=== PATIENT | male | born 1970 | race Caucasian/White ===

== ENCOUNTER 2019-06-19 17:51 | Outpatient (REF) | payer MEDICAID, SELFPAY ==
[2019-06-19 22:20] LABS: Abs Immature Grans 0.02 k/cumm (0.0-0.09); Absolute Basophil Count 0.06 k/cumm (0.0-0.2); Absolute Eosinophil Count 0.32 k/cumm (0.0-0.7); Absolute Lymphocyte Count 3.33 k/cumm (1.2-3.4); Absolute Monocyte Count 0.69 k/cumm (0.11-0.7); Absolute Neutrophil Count 5.33 k/cumm (1.2-6.7); Basophils % 0.6; Eosinophils % 3.3; HCT 40.5 % (40.0-50.0); HGB 13.6 g/dL (13.5-17.5); Immature Grans % 0.2; Lymphocytes % 34.2; Mean Corp. HGB Concentration 33.6 g/dL (32.0-36.0); Mean Corpuscular Hemoglobin 31.9 pg (27.0-33.0); Mean Corpuscular Volume 94.8 fL (80-95); Mean Platelet Volume 10.8 fL (8.0-11.0); Monocytes % 7.1; Neutrophils % 54.6; Platelet Count 261 x1000/uL (130-400); RBC 4.27 m/cumm (4.50-6.00); RBC Distribution Width 12.7 % (11.8-14.1); White Blood Cell Count 9.75 k/cumm (4.4-10.8)
[2019-06-19 22:30] LABS: Iron 57 ug/dL (65-175); Total Iron Binding Capacity 307 ug/dL (250-450); Transferrin Sat 19 % (20-55)
[2019-06-19 23:00] LABS: ALT 24 U/L (16-63); AST 12 U/L (15-37); Alkaline Phosphatase 71 U/L (46-116); Anion Gap 10.8 mmol/L (3-11); BUN 17 mg/dL (7-18); Bilirubin, Total 0.2 mg/dL (0.2-1.0); CO2 26.2 mmol/L (21.0-32.0); CREATININE 0.88 mg/dL (0.70-1.30); Calcium 9.1 mg/dL (8.5-10.1); Calculated LDL 115 mg/dL; Chloride 104 mmol/L (98-107); Cholesterol 187 mg/dL (<200); Folate 10.9 ng/mL (8.6-20.0); Glucose 88 mg/dL (74-106); HDL Cholesterol 47 mg/dL (40-60); Potassium 4.2 mmol/L (3.5-5.1); Sodium 141 mmol/L (136-145); TSH (W/Ref FT4) 2.59 uIU/mL (0.36-3.74); Triglyceride 126 mg/dL (<150); Vitamin B12 520 pg/mL (193-986)
[2019-06-19 23:02] LABS: INR 0.9 (0.9-1.1); Prothrombin Time 9.1 sec (9.3-11.0)
[2019-06-19 23:10] LABS: Lipase 217 U/L (73-393)
== END 2019-06-19 18:11 ==
LOC: NCHCN 17:51
PROVIDERS: PCP Nurse Practitioner Community Health; Visit Provider Nurse Practitioner Community Health
DX: K92.2 Gastrointestinal hemorrhage, unspecified (principal)
CPT/HCPCS: 80053; 80061; 83690; 82607; 82746; 83540; 83550; 84443; 85025; 85610

== ENCOUNTER 2019-07-18 15:44 | Outpatient (REF) | payer MEDICAID, SELFPAY ==
[2019-07-18 21:51] LABS: Absolute Basophil Count 0.03 k/cumm (0.0-0.2); Absolute Eosinophil Count 0.29 k/cumm (0.0-0.7); Absolute Lymphocyte Count 2.72 k/cumm (1.2-3.4); Absolute Monocyte Count 0.55 k/cumm (0.11-0.7); Absolute Neutrophil Count 4.45 k/cumm (1.2-6.7); Basophils % 0.4; Eosinophils % 3.6; HCT 40.3 % (40.0-50.0); HGB 13.5 g/dL (13.5-17.5); Lymphocytes % 33.8; Mean Corp. HGB Concentration 33.5 g/dL (32.0-36.0); Mean Corpuscular Hemoglobin 32.1 pg (27.0-33.0); Mean Corpuscular Volume 95.7 fL (80-95); Mean Platelet Volume 10.8 fL (8.0-11.0); Monocytes % 6.8; Neutrophils % 55.4; Platelet Count 281 x1000/uL (130-400); RBC 4.21 m/cumm (4.50-6.00); RBC Distribution Width 12.6 % (11.8-14.1); White Blood Cell Count 8.04 k/cumm (4.4-10.8)
[2019-07-18 22:03] LABS: ALT 21 U/L (16-63); AST 10 U/L (15-37); Albumin 3.9 g/dL (3.4-5.0); Alkaline Phosphatase 85 U/L (46-116); Anion Gap 6.5 mmol/L (3-11); BUN 7 mg/dL (7-18); Bilirubin, Total 0.2 mg/dL (0.2-1.0); CO2 30.5 mmol/L (21.0-32.0); CREATININE 0.85 mg/dL (0.70-1.30); Calcium 9.5 mg/dL (8.5-10.1); Chloride 107 mmol/L (98-107); Glucose 79 mg/dL (74-106); Sodium 144 mmol/L (136-145); Total Protein 6.9 g/dL (6.4-8.2)
[2019-07-22 11:21] LABS: CEA 0.6 ng/mL (See Note)
== END 2019-07-18 16:04 ==
LOC: NCHCN 15:44
PROVIDERS: PCP Nurse Practitioner Community Health; Visit Provider Nurse Practitioner Community Health
DX: K92.2 Gastrointestinal hemorrhage, unspecified (principal); F10.20 Alcohol dependence, uncomplicated
CPT/HCPCS: 80053; 82378; 85025

== ENCOUNTER 2023-09-01 02:31 | Outpatient (CLI) | payer MEDICARE, MEDICAID, SELFPAY ==
[2023-09-01 11:46] LABS: Abs Immature Grans 0.03 10^3/uL (0.0-0.06); Absolute Basophil Count 0.05 10^3/uL (0.0-0.2); Absolute Eosinophil Count 0.15 10^3/uL (0.0-0.7); Absolute Lymphocyte Count 1.15 10^3/uL (1.2-3.4); Absolute Monocyte Count 0.39 10^3/uL (0.1-0.8); Absolute Neutrophil Count 2.78 10^3/uL (1.2-6.7); Basophils % 1.1; Eosinophils % 3.3; HCT 39.5 % (40.0-50.0); Immature Grans % 0.7; Lymphocytes % 25.3; MCH 32.1 pg (27.0-33.0); MCHC 32.9 % (32.0-36.0); MCV 98 fL (80-95); MPV 9.4 fL (8.0-11.0); Monocytes % 8.6; Platelet Count 167 10^3/uL (130-400); RBC 4.05 10^6/uL (4.36-5.78); RDW 12.5 % (11.8-14.1); RDW-SD 45.4 fL; WBC 4.55 10^3/uL (4.4-10.8)
[2023-09-01 12:03] LABS: ALT 21 U/L (16-63); AST 11 U/L (15-37); Alkaline Phosphatase 92 U/L (46-116); Anion Gap 7.5 mmol/L (3-11); BUN 19 mg/dL (7-18); Bilirubin, Total 0.2 mg/dL (0.2-1.0); CO2 30.5 mmol/L (21.0-32.0); CREATININE 0.9 mg/dL (0.70-1.30); Calcium 9.5 mg/dL (8.5-10.1); Chloride 103 mmol/L (98-107); Estimated GFR 100.86 (mL/min/1.73m2); Glucose 92 mg/dL (74-106); Potassium 4.5 mmol/L (3.5-5.1); Sodium 141 mmol/L (136-145); Total Protein 7.6 g/dL (6.4-8.2)
== END 2023-09-01 02:32 | disposition home or self-care (01) ==
PROVIDERS: PCP Nurse Practitioner Community Health; Visit Provider Internal Medicine Hematology & Oncology
DX: C18.9 Malignant neoplasm of colon, unspecified (principal); C78.00 Secondary malignant neoplasm of unspecified lung
CPT/HCPCS: 36415; 80053; 85025

== ENCOUNTER 2023-09-08 01:25 | Outpatient (CLI) | payer MEDICARE, SELFPAY ==
[2023-09-08 09:53] LABS: Abs Immature Grans 0.02 10^3/uL (0.0-0.06); Absolute Basophil Count 0.04 10^3/uL (0.0-0.2); Absolute Eosinophil Count 0.08 10^3/uL (0.0-0.7); Absolute Lymphocyte Count 1.16 10^3/uL (1.2-3.4); Absolute Monocyte Count 0.38 10^3/uL (0.1-0.8); Absolute Neutrophil Count 3.78 10^3/uL (1.2-6.7); Basophils % 0.7; Eosinophils % 1.5; HCT 42.1 % (40.0-50.0); HGB 13.8 g/dL (13.5-17.5); Immature Grans % 0.4; Lymphocytes % 21.2; MCH 31.9 pg (27.0-33.0); MCHC 32.8 % (32.0-36.0); MCV 98 fL (80-95); MPV 9.2 fL (8.0-11.0); Neutrophils % 69.2; Platelet Count 178 10^3/uL (130-400); RBC 4.32 10^6/uL (4.36-5.78); RDW 12.6 % (11.8-14.1); RDW-SD 45.3 fL; WBC 5.46 10^3/uL (4.4-10.8)
[2023-09-08 10:12] LABS: ALT 25 U/L (16-63); AST 13 U/L (15-37); Albumin 4.3 g/dL (3.4-5.0); Alkaline Phosphatase 96 U/L (46-116); Anion Gap 7.9 mmol/L (3-11); BUN 16 mg/dL (7-18); Bilirubin, Total 0.6 mg/dL (0.2-1.0); CO2 31.1 mmol/L (21.0-32.0); CREATININE 1.1 mg/dL (0.70-1.30); Calcium 9.6 mg/dL (8.5-10.1); Chloride 103 mmol/L (98-107); Estimated GFR 79.28 (mL/min/1.73m2); Glucose 86 mg/dL (74-106); Sodium 142 mmol/L (136-145)
== END 2023-09-08 01:26 | disposition home or self-care (01) ==
LOC: LBO 01:25
PROVIDERS: PCP Nurse Practitioner Community Health; Visit Provider Internal Medicine Hematology & Oncology
DX: C18.9 Malignant neoplasm of colon, unspecified (principal)
CPT/HCPCS: 36415; 80053; 85025

== ENCOUNTER 2023-09-15 02:33 | Outpatient (CLI) | payer MEDICARE, SELFPAY ==
[2023-09-15 10:30] LABS: Abs Immature Grans 0.01 10^3/uL (0.0-0.06); Absolute Basophil Count 0.02 10^3/uL (0.0-0.2); Absolute Eosinophil Count 0.11 10^3/uL (0.0-0.7); Absolute Lymphocyte Count 0.84 10^3/uL (1.2-3.4); Absolute Monocyte Count 0.68 10^3/uL (0.1-0.8); Absolute Neutrophil Count 4.99 10^3/uL (1.2-6.7); Basophils % 0.3; Eosinophils % 1.7; HCT 38.2 % (40.0-50.0); HGB 12.7 g/dL (13.5-17.5); Immature Grans % 0.2; Lymphocytes % 12.6; MCH 32.2 pg (27.0-33.0); MCHC 33.2 % (32.0-36.0); MCV 97 fL (80-95); MPV 9.4 fL (8.0-11.0); Monocytes % 10.2; Platelet Count 149 10^3/uL (130-400); RBC 3.94 10^6/uL (4.36-5.78); RDW 12.7 % (11.8-14.1); RDW-SD 44.9 fL; WBC 6.65 10^3/uL (4.4-10.8)
[2023-09-15 10:45] LABS: ALT 27 U/L (16-63); AST 15 U/L (15-37); Albumin 3.7 g/dL (3.4-5.0); Alkaline Phosphatase 118 U/L (46-116); BUN 9 mg/dL (7-18); Bilirubin, Total 0.3 mg/dL (0.2-1.0); CREATININE 0.9 mg/dL (0.70-1.30); Calcium 9.3 mg/dL (8.5-10.1); Chloride 104 mmol/L (98-107); Estimated GFR 100.86 (mL/min/1.73m2); Glucose 90 mg/dL (74-106); Sodium 141 mmol/L (136-145); Total Protein 7.4 g/dL (6.4-8.2)
== END 2023-09-15 02:34 | disposition home or self-care (01) ==
LOC: LBO 02:34
PROVIDERS: PCP Nurse Practitioner Community Health; Visit Provider Internal Medicine Hematology & Oncology
DX: C18.9 Malignant neoplasm of colon, unspecified (principal); C78.00 Secondary malignant neoplasm of unspecified lung
CPT/HCPCS: 36415; 80053; 85025

== ENCOUNTER 2023-09-22 13:51 | Outpatient (CLI) | payer MEDICARE, SELFPAY ==
[2023-09-22 10:58] LABS: Abs Immature Grans 0.03 10^3/uL (0.0-0.06); Absolute Basophil Count 0.02 10^3/uL (0.0-0.2); Absolute Eosinophil Count 0.07 10^3/uL (0.0-0.7); Absolute Lymphocyte Count 1.02 10^3/uL (1.2-3.4); Absolute Monocyte Count 0.45 10^3/uL (0.1-0.8); Absolute Neutrophil Count 3.82 10^3/uL (1.2-6.7); Basophils % 0.4; Eosinophils % 1.3; HCT 40.1 % (40.0-50.0); HGB 13.4 g/dL (13.5-17.5); Immature Grans % 0.6; Lymphocytes % 18.9; MCH 32.9 pg (27.0-33.0); MCHC 33.4 % (32.0-36.0); MCV 99 fL (80-95); Monocytes % 8.3; Neutrophils % 70.5; Platelet Count 161 10^3/uL (130-400); RBC 4.07 10^6/uL (4.36-5.78); RDW 13.2 % (11.8-14.1); RDW-SD 45.9 fL; WBC 5.41 10^3/uL (4.4-10.8)
[2023-09-22 11:13] LABS: ALT 24 U/L (16-63); AST 16 U/L (15-37); Albumin 3.8 g/dL (3.4-5.0); Alkaline Phosphatase 104 U/L (46-116); Anion Gap 12.6 mmol/L (3-11); BUN 13 mg/dL (7-18); Bilirubin, Total 0.4 mg/dL (0.2-1.0); CO2 26.4 mmol/L (21.0-32.0); Calcium 9.2 mg/dL (8.5-10.1); Chloride 103 mmol/L (98-107); Estimated GFR 88.88 (mL/min/1.73m2); Glucose 134 mg/dL (74-106); Potassium 3.6 mmol/L (3.5-5.1); Sodium 142 mmol/L (136-145); Total Protein 7.3 g/dL (6.4-8.2)
== END 2023-09-22 13:52 | disposition home or self-care (01) ==
LOC: LBO 13:51
PROVIDERS: PCP Nurse Practitioner Community Health; Visit Provider Internal Medicine Hematology & Oncology
DX: C18.9 Malignant neoplasm of colon, unspecified (principal)
CPT/HCPCS: 36415; 80053; 85025

== ENCOUNTER 2023-09-29 01:46 | Outpatient (CLI) | payer MEDICARE, SELFPAY ==
[2023-09-29 10:03] LABS: Abs Immature Grans 0.01 10^3/uL (0.0-0.06); Absolute Basophil Count 0.03 10^3/uL (0.0-0.2); Absolute Eosinophil Count 0.09 10^3/uL (0.0-0.7); Absolute Lymphocyte Count 0.83 10^3/uL (1.2-3.4); Absolute Monocyte Count 0.48 10^3/uL (0.1-0.8); Absolute Neutrophil Count 3.05 10^3/uL (1.2-6.7); Basophils % 0.7; HCT 39.3 % (40.0-50.0); HGB 13.1 g/dL (13.5-17.5); Immature Grans % 0.2; Lymphocytes % 18.5; MCH 32.8 pg (27.0-33.0); MCHC 33.3 % (32.0-36.0); MCV 98 fL (80-95); MPV 9.3 fL (8.0-11.0); Monocytes % 10.7; Neutrophils % 67.9; Platelet Count 153 10^3/uL (130-400); RDW-SD 48.1 fL; WBC 4.49 10^3/uL (4.4-10.8)
[2023-09-29 10:18] LABS: ALT 26 U/L (16-63); AST 14 U/L (15-37); Albumin 3.9 g/dL (3.4-5.0); Alkaline Phosphatase 96 U/L (46-116); Anion Gap 10.1 mmol/L (3-11); BUN 17 mg/dL (7-18); Bilirubin, Total 0.6 mg/dL (0.2-1.0); CO2 27.9 mmol/L (21.0-32.0); CREATININE 0.9 mg/dL (0.70-1.30); Calcium 9.2 mg/dL (8.5-10.1); Chloride 101 mmol/L (98-107); Estimated GFR 100.86 (mL/min/1.73m2); Glucose 79 mg/dL (74-106); Sodium 139 mmol/L (136-145); Total Protein 7.3 g/dL (6.4-8.2)
== END 2023-09-29 01:47 | disposition home or self-care (01) ==
LOC: LBO 01:59
PROVIDERS: PCP Nurse Practitioner Community Health; Visit Provider Internal Medicine Hematology & Oncology
DX: C78.00 Secondary malignant neoplasm of unspecified lung (principal)
CPT/HCPCS: 36415; 80053; 85025

== ENCOUNTER 2023-10-06 15:09 | Outpatient (CLI) | payer MEDICARE, SELFPAY ==
[2023-10-06 10:29] LABS: Abs Immature Grans 0.02 10^3/uL (0.0-0.06); Absolute Basophil Count 0.02 10^3/uL (0.0-0.2); Absolute Eosinophil Count 0.07 10^3/uL (0.0-0.7); Absolute Monocyte Count 0.35 10^3/uL (0.1-0.8); Absolute Neutrophil Count 2.54 10^3/uL (1.2-6.7); Basophils % 0.5; Eosinophils % 1.9; HCT 36.5 % (40.0-50.0); HGB 12.5 g/dL (13.5-17.5); Immature Grans % 0.5; Lymphocytes % 18.9; MCH 33.5 pg (27.0-33.0); MCHC 34.2 % (32.0-36.0); MCV 98 fL (80-95); MPV 8.9 fL (8.0-11.0); Monocytes % 9.5; Neutrophils % 68.7; Platelet Count 135 10^3/uL (130-400); RBC 3.73 10^6/uL (4.36-5.78); RDW 15.2 % (11.8-14.1); RDW-SD 52.5 fL
[2023-10-06 10:44] LABS: ALT 27 U/L (16-63); AST 21 U/L (15-37); Albumin 3.9 g/dL (3.4-5.0); Alkaline Phosphatase 90 U/L (46-116); Anion Gap 8.7 mmol/L (3-11); BUN 11 mg/dL (7-18); Bilirubin, Total 0.5 mg/dL (0.2-1.0); CO2 29.3 mmol/L (21.0-32.0); CREATININE 0.9 mg/dL (0.70-1.30); Calcium 9.1 mg/dL (8.5-10.1); Chloride 101 mmol/L (98-107); Estimated GFR 100.86 (mL/min/1.73m2); Glucose 124 mg/dL (74-106); Potassium 3.6 mmol/L (3.5-5.1); Sodium 139 mmol/L (136-145); Total Protein 7.2 g/dL (6.4-8.2)
== END 2023-10-06 15:10 | disposition home or self-care (01) ==
LOC: LBO 15:10
PROVIDERS: PCP Nurse Practitioner Community Health; Visit Provider Internal Medicine Hematology & Oncology
DX: C18.9 Malignant neoplasm of colon, unspecified (principal)
CPT/HCPCS: 36415; 80053; 85025

== ENCOUNTER 2024-02-16 01:47 | Outpatient (CLI) | payer MEDICARE, SELFPAY ==
[2024-02-16 09:23] LABS: Abs Immature Grans 0.01 10^3/uL (0.0-0.06); Absolute Basophil Count 0.04 10^3/uL (0.0-0.2); Absolute Eosinophil Count 0.16 10^3/uL (0.0-0.7); Absolute Lymphocyte Count 0.91 10^3/uL (1.2-3.4); Absolute Neutrophil Count 2.94 10^3/uL (1.2-6.7); Basophils % 0.9 %; Eosinophils % 3.5 %; HCT 40.9 % (40.0-50.0); HGB 14.1 g/dL (13.5-17.5); Immature Grans % 0.2 %; MCH 33.6 pg (27.0-33.0); MCHC 34.5 % (32.0-36.0); MCV 97 fL (80-95); MPV 9.3 fL (8.0-11.0); Neutrophils % 64.4 %; Platelet Count 207 10^3/uL (130-400); RDW 12.6 % (11.8-14.1); RDW-SD 44.7 fL; WBC 4.56 10^3/uL (4.4-10.8)
[2024-02-16 09:38] LABS: ALT 26 U/L (16-63); AST 14 U/L (15-37); Albumin 4.3 g/dL (3.4-5.0); Alkaline Phosphatase 84 U/L (46-116); Anion Gap 5.1 mmol/L (3-11); BUN 13 mg/dL (7-18); Bilirubin, Total 0.39 mg/dL (0.2-1.0); CO2 32.9 mmol/L (21.0-32.0); CREATININE 0.9 mg/dL (0.70-1.30); Calcium 9.8 mg/dL (8.5-10.1); Chloride 103 mmol/L (98-107); Estimated GFR 100.86 (mL/min/1.73m2); Glucose 66 mg/dL (74-106); Potassium 4.2 mmol/L (3.5-5.1); Sodium 141 mmol/L (136-145); Total Protein 7.5 g/dL (6.4-8.2)
[2024-02-16 09:39] LABS: Bilirubin Negative (Negative); Blood Negative (Negative); Clarity Clear (Clear); Glucose Negative (Negative); Ketones Negative (Negative); Leukocyte Esterase Negative (Negative); Nitrite Negative (Negative); Specific Gravity <= 1.005 (1.005-1.025); Urobilinogen 0.2 mg/dL (Up to 0.2); pH 5.5 (5-8)
[2024-02-16 21:56] LABS: CEA 4.4 ng/mL (See Note)
== END 2024-02-16 01:48 | disposition home or self-care (01) ==
LOC: LBO 01:48
PROVIDERS: PCP Nurse Practitioner Community Health; Visit Provider Internal Medicine Hematology & Oncology
DX: C79.9 Secondary malignant neoplasm of unspecified site (principal); C20 Malignant neoplasm of rectum
CPT/HCPCS: 36415; 80053; 81003; 82378; 85025

== ENCOUNTER 2024-03-01 01:05 | Outpatient (RCR) | payer MEDICARE, MEDICAID, SELFPAY ==
[2024-03-01] MEDS: Normal Saline Flush 10 ML SYR IVP (12:22)
[2024-03-01 12:37] LABS: Bilirubin Negative (Negative); Blood Negative (Negative); Clarity Clear (Clear); Glucose Negative (Negative); Ketones Negative (Negative); Leukocyte Esterase Negative (Negative); Nitrite Negative (Negative); Urobilinogen 0.2 mg/dL (Up to 0.2)
[2024-03-01 12:42] LABS: Absolute Basophil Count 0.04 10^3/uL (0.0-0.2); Absolute Eosinophil Count 0.06 10^3/uL (0.0-0.7); Absolute Monocyte Count 0.43 10^3/uL (0.1-0.8); Eosinophils % 1.5 %; HGB 12.9 g/dL (13.5-17.5); Lymphocytes % 22.9 %; MCH 32.9 pg (27.0-33.0); MCHC 33.9 % (32.0-36.0); MCV 97 fL (80-95); MPV 9.2 fL (8.0-11.0); Monocytes % 10.9 %; Neutrophils % 63.7 %; Platelet Count 204 10^3/uL (130-400); RBC 3.92 10^6/uL (4.36-5.78); RDW 13.2 % (11.8-14.1); RDW-SD 46.2 fL; WBC 3.93 10^3/uL (4.4-10.8)
[2024-03-01 12:55] LABS: ALT 18 U/L (16-63); AST 10 U/L (15-37); Albumin 4.1 g/dL (3.4-5.0); Alkaline Phosphatase 78 U/L (46-116); Anion Gap 5.4 mmol/L (3-11); BUN 12 mg/dL (7-18); Bilirubin, Total 0.27 mg/dL (0.2-1.0); CO2 31.6 mmol/L (21.0-32.0); Calcium 9.5 mg/dL (8.5-10.1); Chloride 100 mmol/L (98-107); Estimated GFR 88.88 (mL/min/1.73m2); Glucose 105 mg/dL (74-106); Potassium 4.4 mmol/L (3.5-5.1); Sodium 137 mmol/L (136-145); Total Protein 7.3 g/dL (6.4-8.2)
[2024-03-01 22:35] LABS: CEA 3.7 ng/mL (See Note)
== END 2024-03-02 23:59 | disposition home or self-care (01) ==
LOC: INF 01:05
PROVIDERS: PCP Nurse Practitioner Community Health; Visit Provider Internal Medicine Hematology & Oncology
DX: C20 Malignant neoplasm of rectum (principal); C79.9 Secondary malignant neoplasm of unspecified site; Z45.2 Encounter for adjustment and management of vascular access device
CPT/HCPCS: 36591; 80053; 96523; 81003; 82378; 85025

== ENCOUNTER 2024-03-29 01:35 | Outpatient (RCR) | payer MEDICARE, MEDICAID, SELFPAY ==
[2024-03-03] MEDS: Normal Saline Flush 10 ML SYR IVP (14:12)
[2024-03-15] MEDS: Normal Saline Flush 10 ML SYR IVP (09:00)
[2024-03-15 09:11] LABS: Abs Immature Grans 0.01 10^3/uL (0.0-0.06); Absolute Basophil Count 0.03 10^3/uL (0.0-0.2); Absolute Eosinophil Count 0.05 10^3/uL (0.0-0.7); Absolute Lymphocyte Count 0.84 10^3/uL (1.2-3.4); Absolute Monocyte Count 0.25 10^3/uL (0.1-0.8); Absolute Neutrophil Count 1.99 10^3/uL (1.2-6.7); Basophils % 0.9 %; Eosinophils % 1.6 %; HCT 36.8 % (40.0-50.0); HGB 12.2 g/dL (13.5-17.5); Immature Grans % 0.3 %; Lymphocytes % 26.5 %; MCH 33.2 pg (27.0-33.0); MCHC 33.2 % (32.0-36.0); MCV 100 fL (80-95); MPV 9.3 fL (8.0-11.0); Monocytes % 7.9 %; Neutrophils % 62.8 %; Platelet Count 132 10^3/uL (130-400); RBC 3.68 10^6/uL (4.36-5.78); RDW 13.6 % (11.8-14.1); RDW-SD 49.3 fL; WBC 3.17 10^3/uL (4.4-10.8)
[2024-03-15 09:18] LABS: Bilirubin Negative (Negative); Blood Negative (Negative); Clarity Clear (Clear); Glucose Negative (Negative); Ketones Negative (Negative); Leukocyte Esterase Negative (Negative); Nitrite Negative (Negative); Urobilinogen 0.2 mg/dL (Up to 0.2); pH 6.5 (5-8)
[2024-03-15 09:31] LABS: ALT 21 U/L (16-63); AST 17 U/L (15-37); Albumin 3.7 g/dL (3.4-5.0); Alkaline Phosphatase 68 U/L (46-116); Anion Gap 4.3 mmol/L (3-11); BUN 23 mg/dL (7-18); Bilirubin, Total 0.19 mg/dL (0.2-1.0); CO2 30.7 mmol/L (21.0-32.0); CREATININE 1.1 mg/dL (0.70-1.30); Calcium 9.2 mg/dL (8.5-10.1); Chloride 103 mmol/L (98-107); Estimated GFR 79.28 (mL/min/1.73m2); Glucose 120 mg/dL (74-106); Potassium 4.2 mmol/L (3.5-5.1); Sodium 138 mmol/L (136-145); Total Protein 6.6 g/dL (6.4-8.2)
[2024-03-15 18:12] LABS: CEA 4.5 ng/mL (See Note)
[2024-03-17] MEDS: Normal Saline Flush 10 ML SYR IVP (11:47)
== END 2024-04-01 23:59 | disposition home or self-care (01) ==
LOC: INF 01:35
PROVIDERS: PCP Nurse Practitioner Community Health; Visit Provider Internal Medicine Hematology & Oncology
DX: C20 Malignant neoplasm of rectum (principal); C79.9 Secondary malignant neoplasm of unspecified site
CPT/HCPCS: 36591; 80053; 96523; 81003; 82378; 85025

== ENCOUNTER 2024-04-12 01:29 | Outpatient (RCR) | payer MEDICARE, SELFPAY ==
[2024-04-12 12:56] LABS: Abs Immature Grans 0.03 10^3/uL (0.0-0.06); Absolute Basophil Count 0.04 10^3/uL (0.0-0.2); Absolute Eosinophil Count 0.16 10^3/uL (0.0-0.7); Absolute Monocyte Count 0.73 10^3/uL (0.1-0.8); Absolute Neutrophil Count 3.52 10^3/uL (1.2-6.7); Basophils % 0.7 %; Eosinophils % 2.9 %; HCT 35.6 % (40.0-50.0); HGB 11.4 g/dL (13.5-17.5); Immature Grans % 0.5 %; Lymphocytes % 19.7 %; MCH 33.5 pg (27.0-33.0); MCV 105 fL (80-95); MPV 9.2 fL (8.0-11.0); Monocytes % 13.1 %; Neutrophils % 63.1 %; Platelet Count 201 10^3/uL (130-400); RDW 16.2 % (11.8-14.1); RDW-SD 62.7 fL; WBC 5.58 10^3/uL (4.4-10.8)
[2024-04-12 13:00] LABS: Bilirubin Negative (Negative); Blood Negative (Negative); Clarity Clear (Clear); Glucose Negative (Negative); Ketones Negative (Negative); Leukocyte Esterase Negative (Negative); Nitrite Negative (Negative); Urobilinogen 0.2 mg/dL (Up to 0.2)
[2024-04-12 13:14] LABS: ALT 63 U/L (16-63); AST 26 U/L (15-37); Albumin 3.6 g/dL (3.4-5.0); Alkaline Phosphatase 158 U/L (46-116); Anion Gap 7.6 mmol/L (3-11); BUN 13 mg/dL (7-18); CO2 29.4 mmol/L (21.0-32.0); CREATININE 0.7 mg/dL (0.70-1.30); Calcium 9.3 mg/dL (8.5-10.1); Chloride 106 mmol/L (98-107); Estimated GFR 108.82 (mL/min/1.73m2); Glucose 80 mg/dL (74-106); Potassium 4.2 mmol/L (3.5-5.1); Sodium 143 mmol/L (136-145); Total Protein 7.2 g/dL (6.4-8.2)
[2024-04-15 12:40] LABS: CEA 2.1 ng/mL (See Note)
== END 2024-05-02 23:59 | disposition home or self-care (01) ==
LOC: INF 01:29
PROVIDERS: PCP Nurse Practitioner Community Health; Visit Provider Internal Medicine Hematology & Oncology
DX: C20 Malignant neoplasm of rectum; C78.00 Secondary malignant neoplasm of unspecified lung
CPT/HCPCS: 80053; 81003; 82378; 85025

== ENCOUNTER 2024-06-18 02:41 | Outpatient (RCR) | payer MEDICARE, SELFPAY ==
[2024-06-18 10:06] LABS: Abs Immature Grans 0.02 10^3/uL (0.0-0.06); Absolute Basophil Count 0.03 10^3/uL (0.0-0.2); Absolute Eosinophil Count 0.11 10^3/uL (0.0-0.7); Absolute Lymphocyte Count 1.38 10^3/uL (1.2-3.4); Absolute Monocyte Count 0.44 10^3/uL (0.1-0.8); Absolute Neutrophil Count 3.95 10^3/uL (1.2-6.7); Basophils % 0.5 %; Eosinophils % 1.9 %; HCT 43.6 % (40.0-50.0); HGB 14.5 g/dL (13.5-17.5); Immature Grans % 0.3 %; Lymphocytes % 23.3 %; MCH 33.1 pg (27.0-33.0); MCHC 33.3 % (32.0-36.0); MCV 100 fL (80-95); MPV 9.4 fL (8.0-11.0); Monocytes % 7.4 %; Neutrophils % 66.6 %; Platelet Count 224 10^3/uL (130-400); RBC 4.38 10^6/uL (4.36-5.78); RDW 11.8 % (11.8-14.1); RDW-SD 42.5 fL; WBC 5.93 10^3/uL (4.4-10.8)
[2024-06-18 10:08] LABS: Bilirubin Negative (Negative); Blood Negative (Negative); Clarity Clear (Clear); Glucose Negative (Negative); Ketones Negative (Negative); Leukocyte Esterase Negative (Negative); Nitrite Negative (Negative); Urobilinogen 0.2 mg/dL (Up to 0.2); pH 6.5 (5-8)
[2024-06-18 10:22] LABS: ALT 31 U/L (16-63); AST 14 U/L (15-37); Albumin 3.9 g/dL (3.4-5.0); Alkaline Phosphatase 92 U/L (46-116); Anion Gap 7.6 mmol/L (3-11); BUN 12 mg/dL (7-18); Bilirubin, Total 0.19 mg/dL (0.2-1.0); CO2 29.4 mmol/L (21.0-32.0); CREATININE 0.8 mg/dL (0.70-1.30); Calcium 9.3 mg/dL (8.5-10.1); Chloride 105 mmol/L (98-107); Estimated GFR 104.51 (mL/min/1.73m2); Glucose 117 mg/dL (74-106); Sodium 142 mmol/L (136-145); Total Protein 7.3 g/dL (6.4-8.2)
[2024-06-18 18:32] LABS: CEA 1.7 ng/mL (See Note)
== END 2024-07-02 23:59 | disposition home or self-care (01) ==
LOC: INF 02:41
PROVIDERS: PCP Nurse Practitioner Community Health; Visit Provider Internal Medicine Hematology & Oncology
DX: C20 Malignant neoplasm of rectum; C79.9 Secondary malignant neoplasm of unspecified site; Z45.2 Encounter for adjustment and management of vascular access device
CPT/HCPCS: 36415; 80053; 81003; 82378; 85025

== ENCOUNTER 2024-11-14 09:13 | Outpatient (CLI) | payer MEDICARE, SELFPAY ==
[2024-11-14 19:17] LABS: CEA 1.7 ng/mL (See Note)
== END 2024-11-14 09:14 | disposition home or self-care (01) ==
LOC: LBO 09:13
PROVIDERS: PCP Nurse Practitioner Community Health; Visit Provider Internal Medicine Hematology & Oncology
DX: C18.9 Malignant neoplasm of colon, unspecified (principal)
CPT/HCPCS: 36415; 82378

== ENCOUNTER 2025-01-16 01:11 | Outpatient (RCR) | payer MEDICARE, MEDICAID, SELFPAY ==
[2025-01-16 09:44] LABS: Abs Immature Grans 0.04 10^3/uL (0.0-0.06); HCT 35.0 % (40.0-50.0); HGB 11.4 g/dL (13.5-17.5); Immature Grans % 0.7 %; MCH 32.8 pg (27.0-33.0); MCHC 32.6 % (32.0-36.0); MCV 101 fL (80-95); MPV 10.0 fL (8.0-11.0); Platelet Count 153 10^3/uL (130-400); RBC 3.48 10^6/uL (4.36-5.78); RDW 14.5 % (11.8-14.1); RDW-SD 53.6 fL; WBC 5.44 10^3/uL (4.4-10.8)
[2025-01-16] MEDS: Normal Saline Flush 10 ML SYR IVP (09:50)
[2025-01-16 10:08] LABS: ALT 42 U/L (16-63); AST 15 U/L (15-37); Albumin 3.6 g/dL (3.4-5.0); Alkaline Phosphatase 106 U/L (46-116); Anion Gap 5.0 mmol/L (3-11); BUN 15 mg/dL (7-18); Bilirubin, Total 0.3 mg/dL (0.2-1.0); CO2 32.0 mmol/L (21.0-32.0); Calcium 8.8 mg/dL (8.5-10.1); Chloride 102 mmol/L (98-107); Estimated GFR 103.87 (mL/min/1.73m2); Glucose 119 mg/dL (74-106); Potassium 4.0 mmol/L (3.5-5.1); Sodium 139 mmol/L (136-145); TSH 6.39 uIU/mL (0.36-3.74); Total Protein 6.7 g/dL (6.4-8.2)
[2025-01-16 19:14] LABS: CEA 2.6 ng/mL (See Note)
== END 2025-01-30 23:59 | disposition home or self-care (01) ==
LOC: INF 01:11
PROVIDERS: PCP Nurse Practitioner Community Health; Visit Provider Internal Medicine Hematology & Oncology
DX: C20 Malignant neoplasm of rectum (principal); C79.9 Secondary malignant neoplasm of unspecified site; R53.83 Other fatigue; C18.9 Malignant neoplasm of colon, unspecified; C78.00 Secondary malignant neoplasm of unspecified lung; R79.89 Other specified abnormal findings of blood chemistry; Z45.2 Encounter for adjustment and management of vascular access device
CPT/HCPCS: 36591; 80053; 82378; 84439; 84443; 85025

== ENCOUNTER 2025-03-23 00:33 | Outpatient (RCR) | payer MEDICARE, MEDICAID, SELFPAY ==
[2025-03-21] MEDS: Normal Saline Flush 10 ML SYR IVP (10:30)
[2025-03-21 11:02] LABS: Abs Immature Grans 0.02 10^3/uL (0.0-0.06); HCT 40.1 % (40.0-50.0); HGB 13.3 g/dL (13.5-17.5); Immature Grans % 0.4 %; MCH 32.0 pg (27.0-33.0); MCHC 33.2 % (32.0-36.0); MCV 96 fL (80-95); MPV 9.7 fL (8.0-11.0); Platelet Count 223 10^3/uL (130-400); RBC 4.16 10^6/uL (4.36-5.78); RDW 12.6 % (11.8-14.1); RDW-SD 45.1 fL; WBC 5.41 10^3/uL (4.4-10.8)
[2025-03-21 11:16] LABS: ALT 29 U/L (16-63); AST 17 U/L (15-37); Albumin 4.0 g/dL (3.4-5.0); Alkaline Phosphatase 127 U/L (46-116); Anion Gap 8.9 mmol/L (3-11); BUN 11 mg/dL (7-18); Bilirubin, Total 0.5 mg/dL (0.2-1.0); CO2 27.1 mmol/L (21.0-32.0); Calcium 9.7 mg/dL (8.5-10.1); Chloride 104 mmol/L (98-107); Glucose 98 mg/dL (74-106); Potassium 3.8 mmol/L (3.5-5.1); Sodium 140 mmol/L (136-145); Total Protein 7.6 g/dL (6.4-8.2)
== END 2025-04-01 23:59 | disposition home or self-care (01) ==
LOC: INF 00:33
PROVIDERS: PCP Nurse Practitioner Community Health; Visit Provider Internal Medicine Hematology & Oncology
DX: C20 Malignant neoplasm of rectum (principal); C79.9 Secondary malignant neoplasm of unspecified site; R53.83 Other fatigue; Z45.2 Encounter for adjustment and management of vascular access device
CPT/HCPCS: 36415; 80053; 96523; 82378; 85025

== ENCOUNTER 2025-04-03 12:13 | Emergency (ER) | payer MEDICARE, MEDICAID, SELFPAY ==
[2025-04-03 12:22] VITALS: BP 129/84; PULSE 76; RESP 18; TEMP 36.8; O2SAT 96
--- NOTE | 2025-04-03 13:31 | DI.RAD_ITS ---
Exam(s) XR HAND LT COMPLETE EXAM: XR HAND LT COMPLETE CLINICAL HISTORY: fb left 4th mcp, dorsal, swelling. TECHNIQUE: 2D digital imaging was performed. COMPARISON: No exams were available for comparison FINDINGS: 3 views There is ring true hree around the midshaft of the proximal phalanx of the 4th- ring finger. Is no evidence of fracture or dislocation no abnormal soft tissue calcifications. No osseous lesions nor erosions. Metacarpophalangeal joints and interphalangeal joints of all fingers appear unremarkable. However, there are advanced degenerative changes at the 1st carpometacarpal joint evident. Thi s is the articulation between the thumb metacarpal and the trapezium bone of the distal carpal row. IMPRESSION: No acute osseous findings. Advanced degenerative changes in the 1st carpometacarpal joint noted. DATA REPOSITORY: RADIATION DOSE DELIVERED:
[2025-04-03] MEDS: Diph,Pertuss(Acell),Tet Vac/Pf 0.5 ML SYR IM (14:26)
--- NOTE | 2025-04-04 19:22 | W.ED.GENAD ---
Discharge Plan Disposition Patient Disposition: Home Condition: Stable Discharge Details Clinical Impression: Cellulitis, Puncture wound of hand Primary Care Provider: Lina Corrales ED Provider: Kim Monterroso Home Meds and New Rx's Prescriptions: New doxycycline hyclate 100 mg capsule 100 mg PO BID Qty: 20 0RF Continued gabapentin 600 mg tablet 1,200 mg PO BID sertraline 50 mg tablet 50 mg PO DAILY Patient Comments: TAKE ONE TABLET BY MOUTH EVERY DAY dextroamphetamine-amphetamine 20 mg tablet 20 mg PO DAILY clonazepam 1 mg tablet 1 mg PO HS PRN Patient Comments: TAKE ONE TABLET BY MOUTH AT BEDTIME NEEDED diphenoxylate-atropine 2.5-0.025 mg tablet 1 tab PO QID PRN Patient Comments: TAKE ONE TABLET BY MOUTH FOUR TIMES A DAY NEEDED oxycodone 10 mg tablet 10 - 20 mg PO Q4H PRN Patient Comments: TAKE 1 TO 2 TABLETS BY MOUTH EVERY 4 HOURS NEEDED MAXIMUM DAILY DOSE = SIX TABLETS oxybutynin chloride 10 mg tablet extended release 24hr 10 mg PO DAILY Patient Comments: TAKE ONE TABLET BY MOUTH EVERY DAY trazodone 50 mg tablet 25 - 100 mg PO HS PRN Patient Comments: TAKE 1/2 TO 2 TABLETS BY MOUTH AT BEDTIME DIRECTED sildenafil 100 mg tablet 100 mg PO DAILY PRN Patient Comments: TAKE 1/4 TO 1 TABLET BY MOUTH ONCE DAILY NEEDED BEFORE INTERCOURSE prochlorperazine maleate 10 mg tablet 10 mg PO TID PRN Patient Comments: TAKE ONE TABLET BY MOUTH THREE TIMES A DAY NEEDED Discharge Instructions Instructions: Cellulitis (Skin Infection), Adult ED Additional Instructions: Keep hand in splint Take the antibiotic as prescribed, elevate your hand above your heart is much as possible and try not to keep it in a dependent position Warm compresses, try to refrain from bending your fourth finger You have declined letting us cut your ring, please keep an eye on the finger and if you start having worsening pain or discoloration you must return for reassessment Make sure you remove the dressing over the splint to check for spreading redness once a day, this will take 48 hours before there is some improvement Please be reevaluated in 2 days and return earlier should you have fever, chills, worsening pain Referrals: Lina Corrales [Primary Care Provider, Medicine] Discharge Data Discharge Date/Time-TO BE ENTERED AT DEPARTURE: 04/03/25 14:52 HPI General Date/Time Provider Initiated Documentation: 04/03/25 12:45. HPI Narrative: This 54-year-old male presents with wound to his left hand. He states that he was using a skill saw and there was a nail in the wood shop back and punctured his hand he pulled out the nail but has swelling and pain today. He has a history of cancer and is receiving chemotherapy the cancer center refused to administer chemotherapy today secondary to infection in his left hand. Patient presents for assessment. Related Data Home Medications ?Medication ?Instructions ?Recorded ?Confirmed clonazepam 1 mg tablet 1 mg PO HS PRN 04/03/25 04/03/25 dextroamphetamine-amphetamine 20 20 mg PO DAILY 04/03/25 04/03/25 mg tablet diphenoxylate-atropine 2.5 1 tab PO QID PRN 04/03/25 04/03/25 mg-0.025 mg tablet doxycycline hyclate 100 mg capsule 100 mg PO BID #20 caps 04/03/25 gabapentin 600 mg tablet 1,200 mg PO BID 04/03/25 04/03/25 oxybutynin chloride 10 mg 10 mg PO DAILY 04/03/25 04/03/25 tablet,extended release 24 hr oxycodone 10 mg tablet 10 - 20 mg PO Q4H PRN 04/03/25 04/03/25 prochlorperazine maleate 10 mg 10 mg PO TID PRN 04/03/25 04/03/25 tablet sertraline 50 mg tablet 50 mg PO DAILY 04/03/25 04/03/25 sildenafil 100 mg tablet 100 mg PO DAILY PRN 04/03/25 04/03/25 trazodone 50 mg tablet 25 - 100 mg PO HS PRN 04/03/25 04/03/25 Previous Rx's ?Medication ?Instructions ?Recorded doxycycline hyclate 100 mg capsule 100 mg PO BID #20 caps 04/03/25 Allergies Allergy/AdvReac Type Severity Reaction Status Date / Time No Known Allergies Allergy Unverified 04/03/25 12:24 General Stated Complaint: Cellulitis COCO: 3 Exam Narrative Exam Narrative: Alert and oriented 54-year-old male in no acute distress, left hand with swelling and pink discoloration ring is in place fingers are perfused well, neurovascularly intact no lymphangitis nontoxic flexion extension to all digits including the affected digit the fourth MCP intact Course Vital Signs Vital signs: Vital Signs Temperature 36.8 C 04/03/25 12:22 Pulse 76 04/03/25 12:22 Respiratory Rate 18 04/03/25 12:22 Blood Pressure 129/84 04/03/25 12:22 Pulse Oximetry 96 04/03/25 12:22 Temperature 36.8 C 04/03/25 12:22 Temperature Source Tympanic 04/03/25 12:22 Pulse 76 04/03/25 12:22 Respiratory Rate 18 04/03/25 12:22 Blood Pressure 129/84 04/03/25 12:22 Blood Pressure Position Sitting 04/03/25 12:22 Pulse Oximetry 96 04/03/25 12:22 Oxygen Delivery Method Room Air 04/03/25 12:22 Oxygen Flow Rate 0 04/03/25 12:22 Pain Level 4 04/03/25 12:22 Medical Decision Making Results: X-ray of affected hand does show soft tissue swelling without foreign body or other acute abnormality Assessment and plan: Patient with this injury to left hand, concern for foreign body infection. Foreign body not visualized on x-ray, radiologist interpretation reviewed. Tetanus is up-to-date. I did recommend we remove patient's ring, however I was unsuccessful removing it with string and patient has refused cutting it off. He is not appearing systemically ill, vital stable. I will start patient on doxycycline and have him follow-up for reassessment in [address] a splint over the area where the puncture wound occurred and patient will elevate hand is much as possible. Return precautions discussed in detail and patient expressed understanding . He did consider a septic joint however patient's exam was not consistent with this [facility] All Active Problems (Updated 04/03/25 @ 14:27 by DARA Montano) Puncture wound of hand (Acute) Cellulitis (Acute) Social History Smoking risk assessment performed?: No
== END 2025-04-03 14:52 | disposition home or self-care (01) ==
PROVIDERS: Emergency Provider Physician Assistant; PCP Nurse Practitioner Community Health
DX: S61.439A Puncture wound without foreign body of unspecified hand, initial encounter (principal); L03.114 Cellulitis of left upper limb; Z23 Encounter for immunization; W26.8XXA Contact with other sharp object(s), not elsewhere classified, initial encounter
CPT/HCPCS: 99284 ×2; 29125; 90471; 90715; 73130

== ENCOUNTER 2025-05-01 00:02 | Outpatient (RCR) | payer MEDICARE, MEDICAID, SELFPAY ==
[2025-04-17] MEDS: Normal Saline Flush 10 ML SYR IVP (08:46)
[2025-04-17 08:53] LABS: Abs Immature Grans 0.04 10^3/uL (0.0-0.06); HCT 37.9 % (40.0-50.0); HGB 12.7 g/dL (13.5-17.5); Immature Grans % 0.9 %; MCH 32.5 pg (27.0-33.0); MCHC 33.5 % (32.0-36.0); MCV 97 fL (80-95); MPV 9.5 fL (8.0-11.0); Platelet Count 167 10^3/uL (130-400); RBC 3.91 10^6/uL (4.36-5.78); RDW 12.6 % (11.8-14.1); RDW-SD 45.0 fL; WBC 4.43 10^3/uL (4.4-10.8)
[2025-04-17 09:25] LABS: ALT 29 U/L (16-63); AST 16 U/L (15-37); Albumin 3.7 g/dL (3.4-5.0); Alkaline Phosphatase 92 U/L (46-116); Anion Gap 8.5 mmol/L (3-11); BUN 12 mg/dL (7-18); Bilirubin, Total 0.3 mg/dL (0.2-1.0); CO2 28.5 mmol/L (21.0-32.0); Calcium 9.5 mg/dL (8.5-10.1); Chloride 103 mmol/L (98-107); Glucose 134 mg/dL (74-106); Potassium 3.8 mmol/L (3.5-5.1); Sodium 140 mmol/L (136-145); Total Protein 7.0 g/dL (6.4-8.2)
[2025-04-17 18:30] LABS: CEA 2.4 ng/mL (See Note)
[2025-05-01 09:28] LABS: Abs Immature Grans 0.01 10^3/uL (0.0-0.06); HCT 33.9 % (40.0-50.0); HGB 11.0 g/dL (13.5-17.5); Immature Grans % 0.2 %; MCH 31.8 pg (27.0-33.0); MCHC 32.4 % (32.0-36.0); MCV 98 fL (80-95); MPV 9.8 fL (8.0-11.0); Platelet Count 173 10^3/uL (130-400); RBC 3.46 10^6/uL (4.36-5.78); RDW 13.3 % (11.8-14.1); RDW-SD 47.1 fL; WBC 4.19 10^3/uL (4.4-10.8)
[2025-05-01] MEDS: Normal Saline Flush 10 ML SYR IVP (09:30)
[2025-05-01 09:33] LABS: Glucose Negative (Negative)
[2025-05-01 10:00] LABS: ALT 25 U/L (16-63); AST 13 U/L (15-37); Albumin 3.6 g/dL (3.4-5.0); Alkaline Phosphatase 94 U/L (46-116); Anion Gap 6.0 mmol/L (3-11); BUN 9 mg/dL (7-18); Bilirubin, Total 0.3 mg/dL (0.2-1.0); CO2 31.0 mmol/L (21.0-32.0); Calcium 9.2 mg/dL (8.5-10.1); Chloride 104 mmol/L (98-107); Glucose 93 mg/dL (74-106); Potassium 4.0 mmol/L (3.5-5.1); Sodium 141 mmol/L (136-145); Total Protein 6.7 g/dL (6.4-8.2)
[2025-05-02 09:31] LABS: CEA 1.5 ng/mL (See Note)
== END 2025-05-02 23:59 | disposition home or self-care (01) ==
LOC: INF 00:02
PROVIDERS: PCP Nurse Practitioner Community Health; Visit Provider Internal Medicine Hematology & Oncology
DX: C79.9 Secondary malignant neoplasm of unspecified site (principal); C20 Malignant neoplasm of rectum; R53.83 Other fatigue; Z45.2 Encounter for adjustment and management of vascular access device
CPT/HCPCS: 36591; 80053; 81003; 82378; 85025

== ENCOUNTER 2025-05-17 00:57 | Outpatient (RCR) | payer MEDICARE, MEDICAID, SELFPAY ==
[2025-05-03] MEDS: Normal Saline Flush 10 ML SYR IVP (11:23)
[2025-05-15 10:00] LABS: Abs Immature Grans 0.02 10^3/uL (0.0-0.06); HCT 33.8 % (40.0-50.0); HGB 11.1 g/dL (13.5-17.5); Immature Grans % 0.7 %; MCH 32.0 pg (27.0-33.0); MCHC 32.8 % (32.0-36.0); MCV 97 fL (80-95); MPV 9.6 fL (8.0-11.0); Platelet Count 163 10^3/uL (130-400); RBC 3.47 10^6/uL (4.36-5.78); RDW 14.1 % (11.8-14.1); RDW-SD 48.9 fL; WBC 2.95 10^3/uL (4.4-10.8)
[2025-05-15] MEDS: Normal Saline Flush 10 ML SYR IVP (10:12)
[2025-05-15 10:14] LABS: Glucose Negative (Negative)
[2025-05-15 10:17] LABS: ALT 22 U/L (10-49); AST 17 U/L (<34); Albumin 4.2 g/dL (3.4-5.0); Alkaline Phosphatase 90 U/L (46-116); Anion Gap 6.7 mmol/L (3-11); BUN 12 mg/dL (9-23); Bilirubin, Total 0.20 mg/dL (0.2-1.2); CO2 29.3 mmol/L (20.0-31.0); Calcium 8.9 mg/dL (8.3-10.6); Chloride 106 mmol/L (98-107); Glucose 110 mg/dL (74-106); Potassium 4.3 mmol/L (3.5-5.1); Sodium 142 mmol/L (136-145); Total Protein 6.4 g/dL (5.7-8.2)
[2025-05-15 18:50] LABS: CEA 1.5 ng/mL (See Note)
[2025-05-17 12:15] VITALS: BP 127/77; PULSE 70; RESP 14; TEMP 36.1
== END 2025-06-01 23:59 | disposition home or self-care (01) ==
LOC: INF 00:57
PROVIDERS: PCP Nurse Practitioner Community Health; Visit Provider Internal Medicine Hematology & Oncology
DX: C18.9 Malignant neoplasm of colon, unspecified (principal); Z45.2 Encounter for adjustment and management of vascular access device
CPT/HCPCS: 36591; 80053; 96523; 81003; 82378; 85025

== ENCOUNTER 2025-07-02 13:53 | Outpatient (CLI) | payer MEDICARE, MEDICAID, SELFPAY ==
[2025-07-02 14:15] LABS: Abs Immature Grans 0.02 10^3/uL (0.0-0.06); HCT 39.7 % (40.0-50.0); HGB 12.7 g/dL (13.5-17.5); Immature Grans % 0.3 %; MCH 31.2 pg (27.0-33.0); MCHC 32.0 % (32.0-36.0); MCV 98 fL (80-95); MPV 9.6 fL (8.0-11.0); Platelet Count 276 10^3/uL (130-400); RBC 4.07 10^6/uL (4.36-5.78); RDW 12.6 % (11.8-14.1); RDW-SD 45.7 fL; WBC 6.64 10^3/uL (4.4-10.8)
[2025-07-02 14:16] LABS: Glucose Negative (Negative)
[2025-07-02 14:31] LABS: ALT 12 U/L (10-49); AST 14 U/L (<34); Albumin 4.6 g/dL (3.2-5.0); Alkaline Phosphatase 98 U/L (46-116); Anion Gap 7.8 mmol/L (3-11); BUN 9 mg/dL (9-23); Bilirubin, Total 0.3 mg/dL (0.2-1.2); CO2 29.2 mmol/L (20.0-31.0); Calcium 9.6 mg/dL (8.3-10.6); Chloride 104 mmol/L (98-107); Glucose 102 mg/dL (74-106); Potassium 3.7 mmol/L (3.5-5.1); Sodium 141 mmol/L (136-145); Total Protein 7.5 g/dL (5.7-8.2)
[2025-07-02 22:54] LABS: CEA 0.7 ng/mL (See Note)
== END 2025-07-02 13:54 | disposition home or self-care (01) ==
LOC: LBO 13:54
PROVIDERS: PCP Nurse Practitioner Community Health; Visit Provider Internal Medicine Hematology & Oncology
DX: C18.9 Malignant neoplasm of colon, unspecified (principal); C78.00 Secondary malignant neoplasm of unspecified lung
CPT/HCPCS: 36415; 80053; 81003; 82378; 85025